=== PATIENT | female | born 1930 | race Caucasian/White ===

== ENCOUNTER → 2016-12-22 | Outpatient (CLI) | payer MEDICARE, BC ==
[~2016-12-22] MED LIST: ALDACTONE25 MG PO; ASPIRIN81 MG PO; CORDARONE200 MG PO; COUMADIN1 MG PO; COUMADIN2.5 MG PO; COUMADIN4 MG PO; DILTIAZEM 12HR90 MG PO; FLONASE16 GM NASBOTH; HYDROCORTISONE TOP; IRON325 M1 PO; LASIX20 MG PO; LOPRESSOR50 MG PO; MOBIC15 MG PO; MULTI FOR HER1 EACH PO; NEOMYC-POLYM-D3.5 GM EYEBOTH; NEOSPORIN OIN14.2 GM TOP; OSTEO BI-FLEX1 EACH PO; REFRESH PLUS1 EACH EYEBOTH; TOPROL XL50 MG PO; TYLENOL325 MG PO; VASELINE97.5 ML TOP; VITAMIN B-121000 MCG PO; [UNRECOGNIZED DRUG - OTHER] SWAB
== END | disposition short-term general hospital (02) ==
LOC: CLCARD
DX: I48.0 Paroxysmal atrial fibrillation (principal); I49.5 Sick sinus syndrome; R60.0 Localized edema; N18.3 Chronic kidney disease, stage 3 (moderate); Z79.01 Long term (current) use of anticoagulants; Z79.899 Other long term (current) drug therapy

== ENCOUNTER → 2016-12-25 | Outpatient (CLI) | payer MEDICARE, BC | END | disposition short-term general hospital (02) | LOC: CLCARD 09:25 | DX: I48.0 Paroxysmal atrial fibrillation (principal); N18.3 Chronic kidney disease, stage 3 (moderate); Z79.01 Long term (current) use of anticoagulants; Z79.899 Other long term (current) drug therapy ==